=== PATIENT | male | born 1985 | race Caucasian/White ===

== ENCOUNTER 2019-11-26 19:55 | Emergency (ER) | payer SELFPAY ==
[2019-11-26] MEDS ORDERED: DIPH/PERTUSS(ACELL)/TETANUS VAC/PF 0.5 ML SYR (>=10YO) IM ONE (20:35)
--- NOTE | 2019-11-26 20:40 | ER Document Report ---
ED Medical Screen (RME) - General Chief Complaint: Foot Injury Stated Complaint: RIGHT FOOT INJURY/LACERATION Time Seen by Provider: 11/26/19 20:32 - HPI Notes: 11/26/19 20:35 34-year-old male presents emergency room for evaluation of right third toe laceration along plantar aspect of the 3rd metacarpal joint x 1 hour ago when he accidentally stepped on a plastic charging box, which caused his skin to lacerate. Unsure of his last tetanus. Bleeding is controlled. No [id number] medications have been tried. Unable to bear full weight. No other area of injury. Pain is 3 out of 5, constant. Denies any fevers or chi lls. I have greeted and performed a rapid initial assessment of this patient. A comprehensive ED assessment and evaluation of the patient, analysis of test results and completion of the medical decision making process will be conducted by additional ED providers. PHYSICAL EXAMINATION: GENERAL: Well-appearing, well-nourished and in no acute distress. SKIN: Warm, Dry, normal turgor, no rashes or lesions noted. right third toe laceration approx 2cm along plantar aspect of the 3rd metacarpal joint - Related Data Allergies/Adverse Reactions: No Known Allergies Allergy (Unverified 11/26/19 20:31) Physical Exam - Vital signs Vitals: Temp Pulse Resp BP Pulse Ox 98.2 F 75 16 119/65 98 11/26/19 20:00 11/26/19 20:00 11/26/19 20:00 11/26/19 20:00 11/26/19 20:00 Course - Vital Signs Vital signs: Temp Pulse Resp BP Pulse Ox 98.2 F 75 16 119/65 98 11/26/19 20:00 11/26/19 20:00 11/26/19 20:00 11/26/19 20:00 11/26/19 20:00
--- NOTE | 2019-11-26 21:10 | RADIOLOGY REPORT (SQ) ---
CLINICAL INDICATION: 3rd toe laceration and pain . . TECHNIQUE: 3 view(s) obtained of the right toes. COMPARISON: None. FINDINGS: No acute displaced fracture is identified. Alignment appears anatomic. Joint spaces are within normal limits for age. Surrounding soft tissues are unremarkable. No retained radiopaque foreign body. IMPRESSION: No acute displaced fracture is identified.
[2019-11-26] MEDS ORDERED: LIDOCAINE 1% INJ (10 MG/ML) 10 ML MDV INJ ONE (21:23)
[2019-11-26] MEDS ORDERED: LIDOCAINE 1% INJ-PF (10 MG/ML) 30 ML SDV INJ ONE (21:25)
--- NOTE | 2019-11-26 21:32 | ER Document Report ---
Entered by NOÉ BOWMAN SCRIBE 11/26/[id number] Acting as scribe for:PAOLO ARIAS DO ED General - General Chief Complaint: Laceration Stated Complaint: RIGHT FOOT INJURY/LACERATION Time Seen by Provider: 11/26/19 20:32 Information source: Patient Notes: This 34-year-old male presents to the emergency department with a laceration to his third toe on his right foot that happened about 1 hour ago. Patient states that he was running when he stepped on a charging port at home. Patient describes that there is associated pain and initially the laceration was bleeding excessively. Patient denies fever. - Related Data Allergies/Adverse Reactions: No Known Allergies Allergy (Unverified 11/26/19 20:31) Past Medical History - General Information source: Patient - Social History Smoking Status: Current Every Day Smoker Cigarette use (# per day): Yes Chew tobacco use (# tins/day): No Frequency of alcohol use: None Drug Abuse: Marijuana Lives with: Family Family History: Reviewed & Not Pertinent Patient has homicidal ideation: No - Medical History Medical History: Negative Surgical Hx: Negative Review of Systems - Review of Systems Constitutional: See HPI. denies: Fever EENT: No symptoms reported Cardiovascular: No symptoms reported Respiratory: No symptoms reported Gastrointestinal: No symptoms reported Genitourinary: No symptoms reported Male Genitourinary: No symptoms reported Musculoskeletal: See HPI, Other - Right toe pain Skin: No symptoms reported Hematologic/Lymphatic: No symptoms reported Neurological/Psychological: No symptoms reported -: Yes All other systems reviewed and negative Physical Exam - Vital signs Vitals: Temp Pulse Resp BP Pulse Ox 98.2 F 75 16 119/65 98 11/26/19 20:00 11/26/19 20:00 11/26/19 20:00 11/26/19 20:00 11/26/19 20:00 - Notes Notes: Physical Exam: General: Alert, appears well. HEENT: Normocephalic. Atraumatic. PERRL. Extraocular movements intact. Oropharynx clear. Neck: Supple. Non-tender. Respiratory: No respiratory distress. Clear and equal breath sounds bilaterally. Cardiovascular: Regular rate and rhythm. Abdominal: Normal Inspection. Non-tender. No distension. Normal Bowel Sounds. Back: No gross abnormalities. Extremities: Moves all four extremities. Upper extremities: Normal inspection. Normal ROM. Lower extremities: On the dorsal aspect of the middle digit on the right foot there is a 1 1/2 cm laceration. Bleeding is controlled. No other injuries noted. No edema. Normal ROM. Neurological: Normal cognition. AAOx4. Normal speech. Psychological: Normal affect. Normal Mood. Course - Vital Signs Vital signs: Temp Pulse Resp BP Pulse Ox 98.3 F 75 16 119/65 98 11/26/19 20:33 11/26/19 20:00 11/26/19 20:00 11/26/19 20:00 11/26/19 20:00 Procedures - Laceration/Wound Repair Right Foot 3rd digit Time completed: 22:30 Wound length (cm): 1.5 Wound's Depth, Shape: Superficial Anesthetic type: 1% Lidocaine Volume Anesthetic (mLs): 3 Wound explored: Clean Wound Debrided: Minimal Wound Repaired With: Sutures Suture Size/Type: 4:0 - 2 4-0 nylon sutures placed. Pt tolerated without apparent complications. Discharge - Discharge Clinical Impression: Laceration Condition: Good Disposition: HOME, SELF-CARE Instructions: Family Physicians / Practices, Laceration Care ([facility]), Oral Narcotic Medication ([facility]), Prophylactic Antibiotic ([facility]), Tetanus Immunization Given ([facility]) Additional Instructions: Keep wound clean and dry for 24 hours and then clean. Sutures out in 1 week. Return here for redness, streaking, other concerns. I personally performed the services described in the documentation, reviewed and edited the documentation which was dictated to the scribe in my presence, and it accurately records my words and actions.
[2019-11-26] MEDS ORDERED: HYDROCODONE/ACETAMINOPHEN 5-325 MG (6 TAB/ER DISP) PO PRN (22:37)
[2019-11-26] MEDS ORDERED: HYDROCODONE/ACETAMINOPHEN 5-325 MG TABLET PO ONE (22:37)
[2019-11-27 00:03] VITALS: BP 132/65
== END 2019-11-26 23:00 | disposition home or self-care (01) ==
LOC: ER 19:55
PROC: 0HQMXZZ Repair Right Foot Skin, External Approach (ICD-10-PCS; principal; 2019-11-26)
DX: S91.311A Laceration without foreign body, right foot, initial encounter (principal); W22.8XXA Striking against or struck by other objects, initial encounter; F17.210 Nicotine dependence, cigarettes, uncomplicated
CPT/HCPCS: 99282; 90471; 73660; 90715; 12001; J3490